=== PATIENT | female | born 1995 | race Two or more races ===

== ENCOUNTER 2025-06-25 22:10 | Emergency (ER) | payer OTHER ==
[~2025-06-25] VITALS: Ht 185.4 cm; Wt 122.5 kg
--- NOTE | 2025-06-25 22:28 | ED.PDOC ---
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 Patient is a , approximately 5-6 weeks by LMP. Has been has been vaginal bleeding for the past four days. Denies any abdominal pain. Earlier today, lab results shows an elevated B Hcg levels. 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 May 11, 2025 Family History Family History: Reviewed,noncontributory to illness Social History Smoker: Non-Smoker Alcohol: Denies ETOH Use Drugs: Denies Drug Use Lives In: Home Constitutional: denies: chills, diaphoresis, fatigue, fever, malaise, sweats, weakness, others EENTM: denies: blurred vision, double vision, ear bleeding, ear discharge, ear drainage, ear pain, ear ringing, eye pain, eye redness, hearing loss, mouth pain, mouth swelling, nasal discharge, nose bleeding, nose congestion, nose pain, photophobia, tearing, throat pain, throat swelling, voice changes, others Respiratory: denies: cough, hemoptysis, orthopnea, SOB at rest, shortness of breath, SOB with excertion, stridor, wheezing, others Cardiovascular: denies: chest pain, dizzy spells, diaphoresis, Dyspnea on exertion, edema, irregular heart beat, left arm pain, lightheadedness, palp itations, PND, syncope, others Gastrointestinal: denies: abdomen distended, abdominal pain, blood streaked bowels, constipated, diarrhea, dysphagia, difficulty swallowing, hematemesis, melena, nausea, poor appetite, poor fluid intake, rectal bleeding, rectal pain, vomiting, others Genitourinary: denies: abnormal vagina bleeding, burning, dyspareunia, dysuria, flank pain, frequency, hematuria, incontinence, pain, , vagina discharge, urgency, others Neurological: denies: dizziness, fainting, headache, left sided numbness, left sided weakness, numbness, paresthesia, pre-existing deficit, right sided numbness, right sided weakness, seizure, speech problems, tingling, tremors, weakness, others Musculoskeletal: denies: back pain, gout, joint pain, joint swelling, muscle pain, muscle stiffness, neck pain, others Integumetry: denies: bruises, change in color, change in hair/nails, dryness, laceration, lesions, lumps, rash, wounds, others Allergic/Immunocompromised: denies: Difficulty Healing, Frequent Infections, Hives, Itching, others Hematologic/Lymphatic: denies: anemia, blood clots, easy bleeding, easy br uising, swollen glands, others Endocrine: denies: excessive hunger, excessive sweating, excessive thirst, excessive urination, flushing, intolerance to cold, intolerance to heat, unexplained weight gain, unexplained weight loss, others Psychiatric: denies: anxiety, bipolar disorder, depression, hopeless, panic disorder, schizophrenia, sleepless, suicidal, others Physical Exam General Appearance: No Apparent Distress, Normal HEENT: Normal ENT Inspection, Pharynx Normal, TMs Normal Neck: Full Range of Motion, Non-Tender, Normal, Normal Inspection Respiratory: Chest Non-Tender, Lungs Clear, No Accessory Muscle Use, No R espiratory Distress, Normal Breath Sounds Cardiovascular: No Edema, No JVD, No Murmur, No Gallop, Normal Peripheral Pulses, Regular Rate/Rhythm Breast Exam: Deferred Gastrointestinal: No Organomegaly, Non Tender, No Pulsatile Mass, Normal Bowel Sounds, Soft Genitalia: Deferred Pelvic: Deferred Rectal: Deferred Extremities: No calf tenderness, Normal capillary refill, Normal inspection, Normal range of motion, Non-tender, No pedal edema Musculoskeletal : Apperance: Normal Neurologic: Alert, 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) Vaginal Bleeding: - Missed, - Threatened, Blood Loss Anemia, Ectopic , Menorrhagia, Menometrorrhagia, Menstrual Bleeding, UTI X-Ray, Labs, Meds, VS Vital Signs Date Time Temp Pulse Resp B/P (MAP) Pulse Ox O2 Delivery O2 Flow Rate FiO2 06/26/25 01:48 98.5 81 18 130/72 (91) 99 98.5 06/25/25 22:12 98.3 97 16 150/87 99 98.3 Lab Test 06/25/25 22:25 Range/Units White Blood Count 8.1 4.4-10.8 10^3/uL Red Blood Count 4.19 4.0-5.20 10^6/uL Hemoglobin 12.4 12.2-16.2 g/dL Hematocrit 36.7 36.0-46.0 % Mean Corpuscular Volume 87.6 80.0-100.0 fL Mean Corpuscular Hemoglobin 29.5 28.0-32.0 pg Mean Corpuscular Hemoglobin Concent 33.7 32.0-36.0 g/dL Red Cell Distribution Width 13.3 11.8-14.3 % Platelet Count 281 140-450 10^3/uL Mean Platelet Volume 7.6 6.9-10.8 fL Neutrophils (%) (Auto) 58.3 37.0-80.0 % Lymphocytes (%) (Auto) 32.6 10.0-50.0 % Monocytes (%) (Auto) 6.4 0.0-12.0 % Eosinophils (%) (Auto) 2.1 0.0-7.0 % Basophils (%) (Auto) 0.6 0.0-2.0 % Neutrophils # (Auto) 4.7 1.6-8.6 10 ^3/uL Lymphocytes # (Auto) 2.6 0.4-5.4 10 ^3/uL Monocytes # (Auto) 0.5 0-1.3 10 ^3/uL Eosinophils # (Auto) 0.2 0-0.8 10 ^3/uL Basophils # (Auto) 0 0-0.2 10 ^3/uL Nucleated Red Blood Cells 0.1 % Sodium Level 143 136-145 mmol/L Potassium Level 3.5 3.5-5.1 mmol/L Chloride Level 108 H 98-107 mmol/L Carbon Dioxide Level 27 20-31 mmol/L Anion Gap 8 5-15 Blood Urea Nitrogen 10 9-23 mg/dL Creatinine 0.70 0.550-1.02 mg/dL Glomerular Filtration Rate Calc 118 >90 mL/min BUN/Creatinine Ratio 14.3 10.0-20.0 Serum Glucose 99 74-106 mg/dL Calcium Level 9.0 8.7-10.4 mg/dL Beta HCG, Quantitative 249.1 H 1.5-4.2 mIU/mL OBSTETRIC ULTRASOUND PRIOR TO 14 WEEKS CLINICAL INDICATION: vag bleed TECHNIQUE: Multiple grayscale ultrasound images were obtained of the pelvis via transabdominal and transvaginal approach for obstetric evaluation. Limited color Doppler and spectral Doppler acquisitions were also obtained. COMPARISON: US OB TRANS VAGINAL US on DOS: 06/25/25 FINDINGS: Uterus: 8.3 x 4.4 x 2.9 cm. There is a cervical nabothian cyst. The endometrium measures 0.9 cm. No intrauterine gestational sac. Right adnexa: right ovary 3.9 x 2.8 x 2.8 cm. Normal arterial blood flow in the ovary. No right adnexal mass seen. A thick-walled structure with vascularity in the right ovary measures 2.1 cm. Left adnexa: left ovary not visualized. No left adnexal mass seen. Other: There is mild ascites in the pelvis. IMPRESSION: 1. No intrauterine gestational sac. 2. Thick-walled cystic structure in right ovary visualized. DDX Include corpus luteum although ectopic would be in the differential. Follow-up with OBGYN , clinical symptoms, and trending beta HCGs. Time of 1ST Reevaluation: 22:24 Reevaluation 1ST: Unchanged Patient Education/Counseling: Diagnosis, Treatment Family Education/Counseling: No Family Present Departure 1 Departure Time of Disposition: 00:20 Impression: Primary Impression: Encounter for assessment for suspected ectopic Additional Impression: Vaginal bleeding affecting early Disposition: 01 HOME / SELF CARE / HOMELESS Condition: Stable Comments I discussed the case with OBGYN Dr. Means and she reviewed the ultrasound findings and thinks ectopic is unlikely and that the patient is safe because her hCG level is still low. Wang Oviedo recommends discharge home and follow up in 2-3 days for repeat hCG and repeat ultrasound. I made the patient very aware that there is a strong possibility of ectopic and that she needs to return to the emergency department if she has any pain or any worsening symptoms. Critical Care Note Critical Care Time?: No Stability Stability form required: No Heart Score Heart Score: Heart Score Response (Comments) Value History N/A 0 EKG N/A 0 Age N/A 0 Risk Factors N/A 0 Troponin N/A 0 Total 0 I personally scribed for EZEKIEL GUZMAN MD ([email or web address]) on 06/25/25 at 22:28. Electronically submitted by Senthil Powell ([facility]). I personally scribed for EZEKIEL GUZMAN MD ([email or web address]) on 06/26/25 at 00:14. Electronically submitted by Senthil Powell ([facility]). EZEKIEL GUZMAN MD Jun 25, 2025 22:28
[2025-06-25 22:38] LABS: Hematocrit 36.7 % (36.0-46.0); Hemoglobin 12.4 g/dL (12.2-16.2); Mean Corpuscular Hemoglobin 29.5 pg (28.0-32.0); Mean Corpuscular Volume 87.6 fL (80.0-100.0); Nucleated Red Blood Cells % 0.1 %
[2025-06-25 22:46] LABS: Potassium 3.5 mmol/L (3.5-5.1); Sodium 143 mmol/L (136-145)
[2025-06-25 22:47] LABS: Anion Gap 8 (5-15); Calcium 9.0 mg/dL (8.7-10.4); Carbon Dioxide 27 mmol/L (20-31)
[2025-06-25 22:48] LABS: Chloride 108 mmol/L (98-107)
[2025-06-25 22:52] LABS: BUN/Creatinine Ratio 14.3 (10.0-20.0); Blood Urea Nitrogen 10 mg/dL (9-23); Glucose 99 mg/dL (74-106)
--- NOTE | 2025-06-25 23:58 | DVH ---
OBSTETRIC ULTRASOUND PRIOR TO 14 WEEKS CLINICAL INDICATION: vag bleed TECHNIQUE: Multiple grayscale ultrasound images were obtained of the pelvis via transabdominal and tr ansvaginal approach for obstetric evaluation. Limited color Doppler and spectral Doppler acquisitions were also obtained. COMPARISON: US OB TRANS VAGINAL US on DOS: 06/25/25 FINDINGS: Uterus: 8.3 x 4.4 x 2.9 cm. There is a cervical nabothian cyst. The endometrium measures 0.9 cm. No i ntrauterine gestational sac. Right adnexa: right ovary 3.9 x 2.8 x 2.8 cm. Normal arterial blood flow in the ovary. No right adnex al mass seen. A thick-walled structure with vascularity in the right ovary measures 2.1 cm. Left adnexa: left ovary not visualized. No left adnexal mass seen. Other: There is mild ascites in the pelvis. IMPRESSION: 1. No intrauterine gestational sac. 2. Thick-walled cystic structure in right ovary visualized. DDX Include corpus luteum although ectop ic would be in the differential. Follow-up with OBGYN , clinical symptoms, and trending be ta HCGs.
[2025-06-26 01:48] VITALS: BP 130/72; PULSE 81; RESP 18; TEMP 98.5; O2SAT 99
== END 2025-06-26 02:25 | disposition home or self-care (01) ==
LOC: ER 22:14
DX: O20.9 Hemorrhage in early pregnancy, unspecified (principal); R10.21 Pelvic and perineal pain right side; Z3A.01 Less than 8 weeks gestation of pregnancy
CPT/HCPCS: 36415; 76801; 76817; 80048; 84702; 85025; 86850; 86900; 86901